=== PATIENT | male | born 1990 | race Caucasian/White ===

== ENCOUNTER 2018-01-18 19:42 | Emergency (ER) | payer BC ==
[2018-01-18] MEDS ORDERED: ACETAMINOPHEN 500 MG TAB PO ONE (20:22)
[2018-01-18] MEDS ORDERED: NS 1,000 ML IV ONE (20:22)
--- NOTE | 2018-01-18 20:22 | EDPHY ---
HPI/HX/ROS/PE/MDM Narrative: CHIEF COMPLAINT: Fever, fatigue HISTORY OF PRESENT ILLNESS: This patient is a healthy 27 year old male complaining of fatigue and fever. He exercised this morning and did a more intense cardio workout than usual. He ate some fruit and nuts and went to work after this. Around 5-6pm, he became very chilled and noticed cramping/spasms in his low back. He felt febrile, temperature measured around 100.2 at triage. The patient has otherwise felt well all week. He denies cough, sore throat, or rash. No chest pain, shortness of breath, palpitations, vomiting, diarrhea, urinary complaints, headache, lightheadedness. Patient is concerned for rhabdomyolysis. No recent international travel. No calf pain or swelling. REVIEW OF SYSTEMS: A comprehensive 10 system review of systems is otherwise negative aside from elements mentioned in the history of present illness and medical decision making. PAST MEDICAL HISTORY: Denies. SOCIAL HISTORY: Friend at bedside. Employed. Lives in [place]. Does not abuse tobacco, drugs, or alcohol. VITAL SIGNS: Reviewed by me GENERAL: Well-developed, well-nourished, resting comfortably in no respiratory distress. HEENT: Atraumatic. Eyes: No icterus, no injection. Mouth: moist mucous membranes. No erythema or lesions. Neck: supple with no adenopathy. LUNGS: Rales and rhonchi at left base. CARDIAC: Regular rate and rhythm, no rubs, murmurs or gallops. ABDOMEN: Soft, nontender, nondistended, bowel sounds normal. BACK: No CVA tenderness. EXTREMITIES: No trauma. No edema. Range of motion is normal throughout. NEURO: Alert and oriented, grossly nonfocal. SKIN: Warm and dry, no rash. PSYCHIATRIC: Normal mentation, no agitation. Portions of this note were transcribed by a medical territory manager. I personally performed a history, physical exam, medical decision making, and confirmed accuracy of information the transcribed note. ED Course: 27 y/o male presents with fatigue and reported fever. On exam, the patient has rales and rhonchi at left base. Plan to administer albuterol nebulizer. Plan to administer 1g PO Tylenol for symptom relief. 21:24 Labs largely unremarkable. No evidence of rhabdomyolysis. CK normal. Reviewed CXR. Evidence of airways disease. 21:31 Reassessed. Temperature is now 38.5. Plan for flu swab. 22:30 Flu swab negative. Plan to discharge home in good condition. Prescription for azithromycin provided should the patients symptoms persist in 2-3 days. Follow up and return precautions discussed. He is comfortable with this plan. MDM: Differential diagnosis for fever in adults was considered including but not limited to pneumonia, urinary tract infection, viral syndrome, and influenza. - Data Points Imaging Results: Chest X-Ray 01/18/18 20:22 Impression: Airways disease. No pneumonia. Imaging: I viewed and interpreted images myself Laboratory Results: Laboratory Results 01/18/18 20:55 01/18/18 20:55 Medications Given: Discontinued Medications Acetaminophen (Tylenol) 1,000 mg PO EDNOW ONE Stop: 01/18/18 20:23 Last Admin: 01/18/18 20:51 Dose: 1,000 mg Albuterol (Proventil Neb) 3 ml IH EDNOW ONE Stop: 01/18/18 21:26 Last Admin: 01/18/18 21:40 Dose: 3 ml Albuterol Sulfate (Proventil Inh Prepack) 1 mdi TAKEHOME EDNOW ONE Stop: 01/18/18 22:31 Last Admin: 01/18/18 22:43 Dose: 1 mdi Sodium Chloride (Ns) 1,000 mls @ 0 mls/hr IV ONCE ONE; Wide Open PRN Reason: Protocol Stop: 01/18/18 20:23 Last Admin: 01/18/18 20:51 Dose: 1,000 mls General Time Seen by Provider: 01/18/18 20:05 Initial Vital Signs: Initial Vital Signs Temperature (C) 37.9 C 01/18/18 19:43 Heart Rate 99 01/18/18 19:43 Respiratory Rate 18 01/18/18 19:43 Blood Pressure 137/65 H 01/18/18 19:43 O2 Sat (%) 94 01/18/18 19:43 O2 Delivery Mode Room Air Allergies/Adverse Reactions: amoxicillin Allergy (Verified 01/18/18 19:49) Home Medications: Medication Instructions Recorded Albuterol [Proventil Inhaler HFA 1 - 2 puffs IH Q4H #1 mdi 01/18/18 (*)] Azithromycin [Zithromax] 250 mg PO DAILY #6 tab 01/18/18 Departure - Departure Disposition: Home, Routine, Self-Care Clinical Impression: Fever Qualifiers: Fever type: unspecified Qualified Code(s): R50.9 - Fever, unspecified Mild reactive airways disease Qualifiers: Asthma persistence: unspecified Qualified Code(s): J45.909 - Unspecified asthma , uncomplicated Condition: Good Instructions: Albuterol (By breathing), Fever in Adults (ED), Reactive Airways Disease (ED) Additional Instructions: Use albuterol inhaler as prescribed. Begin taking azithromycin as prescribed if you are not feeling better within 2- 3 days as we discussed. Follow up with your primary care provider. Take Tylenol or ibuprofen as directed below as needed for fever. Seek care urgently or follow up at the emergency department if you develop high fever, worsening symptoms, shortness of breath, chest pain, vomiting, or other concerns. Adult Pain & Fever Control: We recommend Acetaminophen (Tylenol) and Ibuprofen (Motrin,Advil) for pain and fever control. When fever is high or pain severe, both drugs can be used at the same time, but at different intervals. Please note the time differences. Your dose is: Acetaminophen 650mg every 4 to 6 hours Ibuprofen 600mg every 6-8 hours with food Note: do not take Acetaminophen with Hydrocodone (Vicodin, Lortab) or Oxycodone (Percocet). These medications also contain Acetaminophen. No more than 3000mg of Acetaminophen should be taken in 24 hours (for an adult). Referrals: Arun Coles MD [Medical Doctor] - As per Instructions Prescriptions: Albuterol [Proventil Inhaler HFA (*)] 1 - 2 puffs IH Q4H #1 mdi Azithromycin [Zithromax] 250 mg PO DAILY #6 tab Report Scribed for: Rowena Crum Report Scribed by: Susanna Bañuelos Date of Report: 01/18/18 Time of Report: 21:30
[2018-01-18 21:01] LABS: PLATELET COUNT 223 10^3/uL (150-400)
[2018-01-18 21:16] LABS: CREATINE KINASE 185 IU/L (0-224)
[2018-01-18] MEDS ORDERED: ALBUTEROL 3 ML DEYVIAL IH ONE (21:25)
[2018-01-18] MEDS ORDERED: ALBUTEROL INH PREPACK MDI TAKEHOME ONE (22:30)
[2018-01-18 22:48] VITALS: BP 105/64
== END 2018-01-18 22:48 | disposition home or self-care (01) ==
DX: J98.09 Other diseases of bronchus, not elsewhere classified (principal)
CPT/HCPCS: J7613